=== PATIENT | female | born 1995 | race Caucasian/White ===

== ENCOUNTER 2018-11-28 07:07 | Emergency (ER) | payer SELFPAY ==
[2018-11-28 09:58] LABS: ABSOLUTE EOSINOPHILS # (AUTO) 0.1 10^3/uL (0.0-0.6); ABSOLUTE LYMPHOCYTES (AUTO) 1.8 10^3/uL (0.5-4.7); ABSOLUTE MONOCYTES (AUTO) 0.6 10^3/uL (0.1-1.4); ABSOLUTE NEUT (AUTO) 9.4 10^3/uL (1.7-8.2); BASOPHILS % (AUTO) 0.2 % (0-2); EOSINOPHILS % (AUTO) 0.6 % (0-6); HEMATOCRIT 41.2 % (36.0-47.0); HEMOGLOBIN 14.3 g/dL (12.0-15.5); MEAN CORPUSCULAR HEMOGLOBIN 30.3 pg (27.0-33.4); MEAN CORPUSCULAR HGB CONC 34.7 g/dL (32.0-36.0); MEAN CORPUSCULAR VOLUME 87 fl (80-97); MONOCYTES % (AUTO) 5.3 % (3-13); PLATELET COUNT 239 10^3/uL (150-450); RED BLOOD COUNT 4.72 10^6/uL (3.72-5.28); SEGMENTED NEUTROPHILS % (AUTO) 78.9 % (42-78); TOTAL CELLS COUNTED % (AUTO) 100 %
[2018-11-28 10:21] LABS: ALANINE AMINOTRANSFERASE 22 U/L (9-52); ALBUMIN 4.3 g/dL (3.5-5.0); ALKALINE PHOSPHATASE 66 U/L (38-126); ANION GAP 9 (5-19); ASPARTATE AMINO TRANSFERASE 13 U/L (14-36); BILIRUBIN,DIRECT 0.2 mg/dL (0.0-0.4); BILIRUBIN,TOTAL 0.3 mg/dL (0.2-1.3); BLOOD UREA NITROGEN 5 mg/dL (7-20); CALCIUM 9.2 mg/dL (8.4-10.2); CARBON DIOXIDE 28 mmol/L (22-30); CHLORIDE 104 mmol/L (98-107); GLUCOSE 94 mg/dL (75-110); POTASSIUM 3.9 mmol/L (3.6-5.0); SODIUM 141.4 mmol/L (137-145); TOTAL PROTEIN 7.3 g/dL (6.3-8.2)
--- NOTE | 2018-11-28 10:22 | RADIOLOGY REPORT (SQ) ---
EXAM DESCRIPTION: CT FACIAL AREA WITH COMPLETED DATE/TIME: 11/28/2018 9:59 am REASON FOR STUDY: left mandibular swelling, ? abscess COMPARISON: None. TECHNIQUE: Post contrast images through the facial bones and orbits windowed for bone and soft tissu e. Additional coronal and sagittal reconstructed images reviewed. All images stored on PACS. All CT scanners at this facility use dose modulation, iterative reconstruction, and/or weight based d osing when appropriate to reduce radiation dose to as low as reasonably achievable (ALARA). [facility]: Dose Right [facility]: CareDose [facility]: Dose Right [facility]: Teradose 4D [facility]: [employer] CONTRAST TYPE AND DOSE: 50 Omnipaque 350- low osmolar. RENAL FUNCTION: None required. The patient is less than 50 years old. RADIATION DOSE: CT Rad equipment meets quality standard of care and radiation dose reduction techniq ues were employed. CTDIvol: 30.4 mGy. DLP: 785 mGy-cm. . LIMITATIONS: None. FINDINGS: FACIAL BONES: No fracture or bone lesion. ORBITS: Intact. No fracture. Symmetric intact globes and retroorbital soft tissues. PARANASAL SINUSES: Clear. No significant mucosal thickening, mass or fluid. No nasal polyps. Maxilla ry sinus outlets are patent. SOFT TISSUES: There is generalized subcutaneous soft tissues swelling along the left all. There is n o focal abscess. INFERIOR BRAIN: Limited view. No acute findings. OTHER: Multiple prominent lymph nodes in the cervical chain, submandibular, and jugular digastric on the left. IMPRESSION: Soft tissue swelling. No abscess. Enlarged lymph nodes on the left. TECHNICAL DOCUMENTATION: JOB ID: [id number] Quality ID # [id number]: Final reports with documentation of one or more dose reduction techniques (e.g., Au tomated exposure control, adjustment of the mA and/or kV according to patient size, use of iterative reconstruction technique) 2010 [employer]- All Rights Reserved Reading location - IP/workstation name: [email or web address]
[2018-11-28] MEDS ORDERED: PENICILLIN V POTASSIUM 500 MG TABLET PO ONE (10:47)
[2018-11-28] MEDS ORDERED: BENZONATATE 100 MG CAPSULE PO ONE (10:53)
[2018-11-28 11:17] VITALS: BP 146/86
--- NOTE | 2018-11-28 13:56 | ER Document Report ---
Entered by MAYCOL FELIX SCRIBE 11/28/18 0917 Acting as scribe for:ERI RODRIGUEZ DO ED General - General Chief Complaint: Toothache Stated Complaint: FACIAL SWELLING Time Seen by Provider: 11/28/18 08:23 Primary Care Provider: Mikki [facility] [Provider Group] - Follow up as needed [facility] [Provider Group] - Follow up as needed DENTISTRY [Provider Group] - Follow up as needed Mode of Arrival: Ambulatory Information source: Patient Notes: Patient is a 23-year-old female presented to the emergency department complaining of left facial swelling and tooth pain for the past several days. Patient states she has a history of an oral abscess that she thinks is the cause of her symptoms. Patient also complains of subjective fevers and nausea. Patient denies any oral drainage or foul taste. Past Medical History - General Information source: Patient - Social History Smoking Status: Current Every Day Smoker Cigarette use (# per day): Yes Chew tobacco use (# tins/day): No Smoking Education Provided: No Frequency of alcohol use: None Drug Abuse: None Family History: Reviewed & Not Pertinent Patient has suicidal ideation: No Patient has homicidal ideation: No Review of Systems - Review of Systems Constitutional: See HPI, Fever - Subjective EENT: See HPI, Mouth swelling, Dental problem Cardiovascular: No symptoms reported Respiratory: No symptoms reported Gastrointestinal: See HPI, Nausea Genitourinary: No symptoms reported Female Genitourinary: No symptoms reported Musculoskeletal: No symptoms reported Skin: No symptoms reported Hematologic/Lymphatic: No symptoms reported Neurological/Psychological: No symptoms reported -: Yes All other systems reviewed and negative Physical Exam - Vital signs Vitals: Temp Pulse Resp BP Pulse Ox 98.8 F 78 22 H 149/98 H 99 11/28/18 07:14 11/28/18 07:14 11/28/18 07:14 11/28/18 07:14 11/28/18 07:14 - Notes Notes: GENERAL: Alert, interacts well. No acute distress. HEAD: atraumatic, left-sided facial swelling around the jaw EYES: Pupils equal, round, and reactive to light. Extraocular movements intact. ENT: Oral mucosa moist, tongue midline. Multiple cavities in various stages of decay. Left side of mandible is swollen and tender to palpation., no fluctuance, no active drainage. Left cheek is more swollen than the actual gumline itself. Erythema surrounding the left second molar. No swelling under the jaw, no Shade's angina. No abscess palpated. No difficulty opening closing the mouth. NECK: Full range of motion. Supple. Trachea midline. LUNGS: Clear to auscultation bilaterally, no wheezes, rales, or rhonchi. No respiratory distress. HEART: Regular rate and rhythm. No murmurs, gallops, or rubs. EXTREMITIES: Moves all 4 extremities spontaneously. NEUROLOGICAL: Alert and oriented x3. Normal speech. PSYCH: Normal affect, normal mood. SKIN: Warm, dry, normal turgor. No rashes or lesions noted. Course - Re-evaluation Re-evalutation: 11/28/18 10:47 CBC shows leukocytosis with a white count of 12.0 otherwise unremarkable, CMP unremarkable, test is negative. CT scan shows the soft tissue swelling that I can see on examination, no focal abscess. Patient will be treated with penicillin and discharged home with request to follow-up with dentist. - Vital Signs Vital signs: Temp Pulse Resp BP Pulse Ox 98.5 F 86 18 146/86 H 100 11/28/18 11:15 11/28/18 11:15 11/28/18 11:15 11/28/18 11:15 11/28/18 11:15 - Laboratory Result Diagrams: 11/28/18 09:30 11/28/18 09:30 Laboratory results interpreted by me: 11/28/18 11/28/18 09:30 09:30 WBC 12.0 H Seg Neutrophils % 78.9 H Absolute Neutrophils 9.4 H BUN 5 L AST 13 L Discharge - Discharge Clinical Impression: Infected dental caries Condition: Stable Disposition: HOME, SELF-CARE Additional Instructions: Dental Infection or Abscess You have an infection, not an abscess (pus formation) of the gum around one of your teeth, which is probably decayed. Currently there is not an abscess, we have started you on antibiotics to help control the infection. You will still need to follow-up with a dentist and if your swelling gets worse it is possible that she may develop an abscess. If you develop high fever with chills, worsening pain, or increasing swelling in the area, see a dentist or oral surgeon immediately or return to the Emergency Department immediately. Please use ibuprofen (Motrin or Advil) 600-800 mg every 8 hours as needed for pain or fever. You may also use acetaminophen (Tylenol) 1000 mg every 4-6 hours as needed for pain or fever. Please be aware that many medications contain acetaminophen, do not exceed a total of 1000 mg of acetaminophen every 6 hours. I have prescribed you Tessalon Perles, these are usually used as a cough drop however it has a topical numbing medication in it. Please poke a hole in the Tessalon Perle and let the liquid slowly seep out over the most painful tooth. You may use this every 8 hours. Do not chew the Tessalon Perles and do not use more often than every 8 hours. Prescriptions: Benzonatate [Tessalon Perles 100 mg Capsule] 100 mg PO Q8HP PRN #40 capsule PRN Reason: Penicillin V Potassium [Penicillin Vk 500 mg Tablet] 500 mg PO QID #28 tablet Referrals: [facility] [Provider Group] - Follow up as needed DENTISTRY [Provider Group] - Follow up as needed [facility] [Provider Group] - Follow up as needed I personally performed the services described in the documentation, reviewed and edited the documentation which was dictated to the scribe in my presence, and it accurately records my words and actions.
== END 2018-11-28 11:21 | disposition home or self-care (01) ==
LOC: ER 07:07
DX: K02.9 Dental caries, unspecified (principal); K04.7 Periapical abscess without sinus; R22.0 Localized swelling, mass and lump, head; R11.0 Nausea; F17.210 Nicotine dependence, cigarettes, uncomplicated
CPT/HCPCS: 36415; 70487; 80053; 81025; 85025; 99283